=== PATIENT | female | born 1970 | race Caucasian/White ===

== ENCOUNTER 2022-03-17 11:11 | Emergency (ER) | payer MEDICAID ==
[~2022-03-17] VITALS: Ht 160 cm; Wt 49.9 kg
--- NOTE | 2022-03-17 11:11 | NUR ---
PT STATES SHE HAS BODY CRAMPING TO LEGS AND ARMS, PT WAS FOUND BY [facility]. [facility] STATES SHE WILL BE GOING TO [facility] AFTER BEING DISCHARGED FROM HERE.
--- NOTE | 2022-03-17 11:11 | NUR ---
BROUGHT IN BY [facility] AND PLACED IN HALLWAY CHAIR, TRIAGED. WILL ASSUME CARE
[2022-03-17 11:13] VITALS: BP_SYST 123
--- NOTE | 2022-03-17 11:14 | NUR ---
DR ZHAO AT CHAIRSIDE FOR EVALUATION
--- NOTE | 2022-03-17 11:24 | NUR ---
Patient given written and verbal discharge instructions and verbalizes understanding. ER MD discussed with patient the results and treatment provided. Patient in stable condition. ID arm band removed. Rx of NONE given. Patient educated on pain management and to follow up with PMD. Pain Scale 0/10. Opportunity for questions provided and answered. Medication side effect fact sheet provided.
== END 2022-03-17 11:24 ==
LOC: SED 11:11
DX: Z02.89 Encounter for other administrative examinations (principal); Z88.0 Allergy status to penicillin; Z79.899 Other long term (current) drug therapy
CPT/HCPCS: 99283